=== PATIENT | male | born 1990 | race Caucasian/White ===

== ENCOUNTER 2017-03-08 21:54 | Emergency (ER) | payer BC, OTHER ==
[~2017-03-08] VITALS: Ht 188 cm; Wt 117.9 kg
[2017-03-08 23:29] LABS: BASOPHILS % (AUTO) 0 % (0-10); EOSINOPHILS # (AUTO) 0.2 10^3/uL (0.0-0.3); EOSINOPHILS % (AUTO) 2 % (0-10); LYMPHOCYTES # (AUTO) 2.8 X 10^3 (1.0-4.0); LYMPHOCYTES % (AUTO) 39 % (12-44); MEAN CORPUSCULAR HEMOGLOBIN 28 PG (25-34); MEAN CORPUSCULAR HGB CONC 34 G/DL (32-36); MEAN CORPUSCULAR VOLUME 81 FL (80-99); MEAN PLATELET VOLUME 10.2 FL (7.4-10.4); MONOCYTES # (AUTO) 0.7 X 10^3 (0.0-1.0); MONOCYTES % (AUTO) 10 % (0-12); NEUTROPHILS # (AUTO) 3.6 X 10^3 (1.8-7.8); NEUTROPHILS % (AUTO) 49 % (42-75); PLATELET COUNT 229 10^3/uL (130-400); RED BLOOD COUNT 5.51 10^6/uL (4.35-5.85); RED CELL DISTRIBUTION WIDTH 12.2 % (10.0-14.5); WHITE BLOOD COUNT 7.2 10^3/uL (4.3-11.0)
[2017-03-08 23:31] LABS: BILIRUBIN,URINE NEGATIVE (NEGATIVE); KETONES,URINE NEGATIVE (NEGATIVE); LEUKOCYTE ESTERASE ,URINE NEGATIVE (NEGATIVE); NITRITE,URINE NEGATIVE (NEGATIVE); PH,URINE 7 (5-9); PROTEIN,URINE NEGATIVE (NEGATIVE); UROBILINOGEN,URINE NORMAL (NORMAL)
[2017-03-08 23:39] LABS: SQUAMOUS EPITHELIAL CELL,UR RARE /HPF
[2017-03-08 23:45] LABS: ALANINE AMINOTRANSFERASE 32 U/L (0-55); ALBUMIN 4.4 GM/DL (3.2-4.5); AMYLASE 51 U/L (25-125); ANION GAP 12 MMOL/L (5-14); ASPARTATE AMINO TRANSFERASE 23 U/L (5-34); BILIRUBIN,TOTAL 0.6 MG/DL (0.1-1.0); BLOOD UREA NITROGEN 12 MG/DL (7-18); BUN/CREATININE RATIO 13 (0-20); CALCIUM 9.7 MG/DL (8.5-10.1); CARBON DIOXIDE 24 MMOL/L (21-32); CHLORIDE 107 MMOL/L (98-107); CREATININE SERUM 0.95 MG/DL (0.60-1.30); GFR ESTIMATED > 60; GLUCOSE 93 MG/DL (70-105); HEMOLYSIS 39 (-100-29); ICTERUS 0.5 (-100-1.9); LIPASE 21 U/L (8-78); LIPEMIA 12 (-100-49); POTASSIUM 4.2 MMOL/L (3.6-5.0); SODIUM 143 MMOL/L (135-145); TOTAL PROTEIN 7.5 GM/DL (6.4-8.2)
[2017-03-09] MEDS ORDERED: IOHEXOL 350 MG/ML 100 ML (OMNIPAQUE 350) VIAL IV ONE
[2017-03-09] MEDS ORDERED: NS 100 ML (IVPB) BAG IV ONE
[2017-03-09] MEDS ORDERED: LACT1CAP8 PO (01:21)
[2017-03-09] MEDS ORDERED: METR500T PO (01:21)
[2017-03-09] MEDS ORDERED: ONDA4TAB8 PO (01:21)
[2017-03-09] MEDS ORDERED: HYOS0.1283 SL (01:21)
[2017-03-09] MEDS ORDERED: CIPR-225 PO (01:21)
--- NOTE | 2017-03-09 01:21 | ED GI ---
General Chief Complaint: Abdominal/GI Problems Stated Complaint: STOMACH PAIN Nursing Triage Note: PT STATES HE HAS HAD DIARRHEA SINCE WEDNESDAY AND HAS BEEN HAVING WORSENING RLQ ABD PAIN, STATES IT IS A CONSTANT DULL PAIN BUT IS INTERMITTENTLY SEVERE. ALSO STATES INTERMITTENT NAUSEA, DENIES VOMITING. WAS SEEN A CHC TODAY AND TOOK 3 OTC SUPPOSITORIES AT HOME. Sepsis Screen: No Definite Risk Allergies and Home Medications Allergies Coded Allergies: No Known Drug Allergies (Unverified , 03/08/17) Past Ynhlwce-Muyrtn-Vsjvzx Hx Patient Social History Alcohol Use: Occasionally Uses Recreational Drug Use: No Smoking Status: Never a Smoker Recent Foreign Travel: No Contact w/Someone Who Travel: No Recent Infectious Disease Expo: No Recent Hopitalizations: No Seasonal Allergies Seasonal Allergies: No Physical Exam Vital Signs VS - Last 72 Hours, by Label 03/08/17 23:15 Temp 97.5 Pulse 77 Resp 15 B/P (MAP) 138/88 Capillary Refill : Less Than 3 Seconds Progress/Results/Core Measures Results/Orders Lab Results Laboratory Tests Test 03/08/17 23:18 03/08/17 23:22 Range/Units White Blood Count 7.2 4.3-11.0 10^3/uL Red Blood Count 5.51 4.35-5.85 10^6/uL Hemoglobin 15.2 13.3-17.7 G/DL Hematocrit 45 40-54 % Mean Corpuscular Volume 81 80-99 FL Mean Corpuscular Hemoglobin 28 25-34 PG Mean Corpuscular Hemoglobin Concent 34 32-36 G/DL Red Cell Distribution Width 12.2 10.0-14.5 % Platelet Count 229 130-400 10^3/uL Mean Platelet Volume 10.2 7.4-10.4 FL Neutrophils (%) (Auto) 49 42-75 % Lymphocytes (%) (Auto) 39 12-44 % Monocytes (%) (Auto) 10 0-12 % Eosinophils (%) (Auto) 2 0-10 % Basophils (%) (Auto) 0 0-10 % Neutrophils # (Auto) 3.6 1.8-7.8 X 10^3 Lymphocytes # (Auto) 2.8 1.0-4.0 X 10^3 Monocytes # (Auto) 0.7 0.0-1.0 X 10^3 Eosinophils # (Auto) 0.2 0.0-0.3 10^3/uL Basophils # (Auto) 0.0 0.0-0.1 10^3/uL Sodium Level 143 135-145 MMOL/L Potassium Level 4.2 3.6-5.0 MMOL/L Chloride Level 107 98-107 MMOL/L Carbon Dioxide Level 24 21-32 MMOL/L Anion Gap 12 5-14 MMOL/L Blood Urea Nitrogen 12 7-18 MG/DL Creatinine 0.95 0.60-1.30 MG/DL Estimat Glomerular Filtration Rate > 60 BUN/Creatinine Ratio 13 0-20 Glucose Level 93 70-105 MG/DL Calcium Level 9.7 8.5-10.1 MG/DL Total Bilirubin 0.6 0.1-1.0 MG/DL Aspartate Amino Transf (AST/SGOT) 23 5-34 U/L Alanine Aminotransferase (ALT/SGPT) 32 0-55 U/L Alkaline Phosphatase 80 40-136 U/L Total Protein 7.5 6.4-8.2 GM/DL Albumin 4.4 3.2-4.5 GM/DL Amylase Level 51 25-125 U/L Lipase 21 8-78 U/L Urine Color YELLOW Urine Clarity CLEAR Urine pH 7 5-9 Urine Specific [place] 1.015 L 1.016-1.022 Urine Protein NEGATIVE NEGATIVE Urine Glucose (UA) NEGATIVE NEGATIVE Urine Ketones NEGATIVE NEGATIVE Urine Nitrite NEGATIVE NEGATIVE Urine Bilirubin NEGATIVE NEGATIVE Urine Urobilinogen NORMAL NORMAL MG/DL Urine Leukocyte Esterase NEGATIVE NEGATIVE Urine RBC (Auto) 1+ H NEGATIVE Urine RBC NONE /HPF Urine WBC NONE /HPF Urine Squamous Epithelial Cells RARE /HPF Urine Crystals NONE /LPF Urine Bacteria NEGATIVE /HPF Urine Casts NONE /LPF Urine Mucus NEGATIVE /LPF Urine Culture Indicated NO My Orders Orders - NORA RODRIGUEZ DO Saline Lock/Iv-Start (03/08/17 23:21) Ct Abdomen/Pelvis W (03/08/17 23:21) Amylase (03/08/17 23:21) Cbc With Automated Diff (03/08/17 23:21) Comprehensive Metabolic Panel (03/08/17 23:21) Lipase (03/08/17 23:21) Ua Culture If Indicated (03/08/17 23:21) Iohexol Injection (Omnipaque 350 Mg/Ml 1 (03/09/17 00:00) Ns (Ivpb) (Sodium Chloride 0.9% Ivpb Bag (03/09/17 00:00) Acute Abd Series (03/09/17 00:10) Medications Given in ED Current Medications Medications Dose Ordered Sig/Jian Route Start Time Stop Time Status Last Admin Dose Admin Iohexol 100 ml ONCE ONCE IV 03/09/17 00:00 03/09/17 00:01 UNV 03/09/17 00:04 100 ML Sodium Chloride 80 ml ONCE ONCE IV 03/09/17 00:00 03/09/17 00:01 UNV 03/09/17 00:04 80 ML Vital Signs/I&O Vital Sign - Last 12Hours 03/08/17 23:15 Temp 97.5 Pulse 77 Resp 15 B/P (MAP) 138/88 Blood Pressure Mean: 105 Departure Impression Impression: Primary Impression: Colitis Disposition: HOME, SELF-CARE Condition: Stable Departure-Patient Inst. Referrals: [facility] (PCP/Family) Primary Care Physician Patient Instructions: Microscopic Colitis Add. Discharge Instructions: CLEAR LIQUIDS--WATER, BROTH, JELLO, GATORADE NO FOOD UNTIL YOU ARE RECHECKED AND CLEARED BY YOUR DR FOLLOW UP WITH [facility] IN 2-3 DAYS FOR FURTHER CARE All discharge instructions reviewed with patient and/or family. Voiced understanding. Scripts Hyoscyamine Sulfate (Levsin-Sl) 0.125 Mg Tab.subl 1-2 TAB SL Q4H for Abdominal Pain, #10 TAB Prov: NORA RODRIGUEZ DO 03/09/17 Ondansetron (Zofran Odt) 4 Mg Tab.rapdis 4 MG PO Q4H for Nausea/Vomiting, #10 TAB Prov: NORA RODRIGUEZ DO 03/09/17 Lactobacillus Acidophilus (Acidophilus) 1 Each Capsule 2 EACH PO QID, #80 CAP Prov: NORA RODRIGUEZ DO 03/09/17 Metronidazole (Flagyl) 500 Mg Tablet 500 MG PO QID for FOR INFECTION, #40 TAB Prov: NORA RODRIGUEZ DO 03/09/17 Ciprofloxacin HCl (Cipro) 500 Mg Tablet 500 MG PO BID, #20 TAB Prov: NORA RODRIGUEZ DO 03/09/17 Work/School Note: Work Release Form Date Seen in the Emergency Department: Mar 09, 2017 Restrictions: Need Release from Doctor NORA RODRIGUEZ DO Mar 09, 2017 01:21
[2017-03-09] MEDS ORDERED: RX-ONDANSETRON 4 MG ODT (ZOFRAN) PPK #4 PO STA (01:28)
[2017-03-09] MEDS ORDERED: RX-HYOSCYAMINE 0.125 MG SL (LEVSIN) PPK#6 SL STA (01:28)
[2017-03-09] MEDS ORDERED: LEVOFLOXACIN 500 MG TAB (LEVAQUIN) PO ONE (01:30)
[2017-03-09] MEDS ORDERED: metroNIDAZOLE 500 MG (FLAGYL) TAB PO ONE (01:30)
[2017-03-09 01:35] VITALS: BP 138/88
--- NOTE | 2017-03-09 06:45 | Diagnostic Imaging Report ---
PROCEDURE: CT abdomen and pelvis with contrast. TECHNIQUE: Multiple contiguous axial images were obtained through the abdomen and pelvis after administration of intravenous contrast. INDICATION: Pain. No priors. There is a segmental diffuse thickening of the colon involving the cecum and descending colon through the hepatic flexure and into the proximal transverse segment. There is associated mild pericolonic edema and some adjacent presumed reactive adenopathy. Pericolonic nodes in the right lower quadrant mesentery measured maximal short axis 11 mm. No pneumatosis or free air. No evidence for viscus perforation. There were no findings of appendicitis. There is no diverticuli. There is a small volume nonloculated dependent pelvic free fluid. No loculated collection or abscess. The liver, gallbladder, spleen, adrenals and pancreas unremarkable. The unobstructed kidneys were normal. Aortoiliac and mesenteric vascular structures patent and nonaneurysmal. Prostate, seminal vesicles and urinary bladder appeared unremarkable. The osseous structures were nonacute. IMPRESSION: Nonspecific right-sided colitis with reactive mild regional adenopathy. Small volume free fluid but no abscess, obstruction or perforation. These changes may reflect inflammatory or infectious colitis. Urinary tracts and remaining structures unremarkable. Negative appendix. I agree with preliminary. Dictated by: Dictated on workstation # [id number]
--- NOTE | 2017-03-09 07:11 | Diagnostic Imaging Report ---
INDICATION: Diarrhea, pain in the right lower quadrant. FINDINGS: The lungs are clear. The heart and vessels are normal. There is no effusion or pneumothorax. The bowel gas pattern normal. No air-fluid levels, free gas or pneumatosis. IMPRESSION: Unremarkable acute abdominal series. Dictated by: Dictated on workstation # [id number]
--- OUTSIDE RECORDS SUMMARY | 2017-03-11 13:49 | XMS REPORT ---
Author ERENDIRA Griffith Organization [employer] Address Unknown Phone Unavailable Care Team Providers Care Projector Booth Operator Name Role Phone ERENDIRA BYERS CP Unavailable Allergies, Adverse Reactions, Alerts Substance Reaction Event Type N.K.D.A. Info Not Available Non Drug Allergy Problems Problem Type Condition Code Onset Dates Condition Status Assessment Sciatica of left side M54.32 Active Problem Intestinal infection due to other organism, NEC 008.8 Active Medications Medication Code System Code Instructions Start Date End Date Status Dosage Cyclobenzaprine HCl [facility] [address]-94 10 mg Orally Three times a day prn pain in buttock March 12, 2016 1 tablet Procedures Procedure Coding System Code Date KENALOG 40 MG/ML (PER 10 MG) CPT-4 J3301 March 31, 2016 THER/PROPH/DIAG INJ, SC/IM CPT-4 99889 March 31, 2016 Office Visit, Est Pt., Level 3 CPT-4 91218 March 31, 2016 Vital Signs Date/Time: March 31, 2016 Cardiac Monitoring Heart Rate 90 bpm Weight 260.0 lbs Height 74 in Blood Pressure Diastolic 72 mmHg Blood Pressure Systolic 120 mmHg Results No Known Results Summary Purpose [employer] Submission
--- OUTSIDE RECORDS SUMMARY | 2017-03-11 13:49 | XMS REPORT | Continuity of Care Document ---
Author Author [facility] Organization [facility] Address Unknown Phone Unavailable Allergies Active Description Code Type Severity Reaction Onset Reported/Identified Relationship to Patient Clinical Status Yes No Known Drug Allergies [id number] Drug Allergy Unknown N/ A 03/08/2017 Medications Problems Date Dx Coded Attending Type Code Diagnosis Diagnosed By 10/25/2013 CEDRICK NELSON APRN 008.8 GASTROENTERITIS, VIRAL 10/25/2013 SANDRA COOL DO 008.8 GASTROENTERITIS, VIRAL Procedures Results Test Result Range Complete blood count (CBC) with automated white blood cell (WBC) differential - 03/08/17 23:18 Blood leukocytes automated count (number/volume) 7.2 10*3/ uL 4.3-11.0 Blood erythrocytes automated count (number/volume) 5.51 10*6 /uL 4.35-5.85 Venous blood hemoglobin measurement (mass/volume) 15.2 g/dL 13.3-17.7 Blood hematocrit (volume fraction) 45 % 40-54 Automated erythrocyte mean corpuscular volume 81 [foz_us] 80-99 Automated erythrocyte mean corpuscular hemoglobin (mass per erythrocyte) 28 pg 25-34 Automated erythrocyte mean corpuscular hemoglobin concentration measurement ( mass/volume) 34 g/dL 32-36 Automated erythrocyte distribution width ratio 12.2 % 10.0-14.5 Automated blood platelet count (count/volume) 229 10*3/uL 130-400 Automated blood platelet mean volume measurement 10.2 [foz_ us] 7.4-10.4 Automated blood neutrophils/100 leukocytes 49 % 42-75 Automated blood lymphocytes/100 leukocytes 39 % 12-44 Blood monocytes/100 leukocytes 10 % 0-12 Automated blood eosinophils/100 leukocytes 2 % 0-10 Automated blood basophils/100 leukocytes 0 % 0-10 Blood neutrophils automated count (number/volume) 3.6 10*3 1.8-7.8 Blood lymphocytes automated count (number/volume) 2.8 10*3 1.0-4.0 Blood monocytes automated count (number/volume) 0.7 10*3 0.0-1.0 Automated eosinophil count 0.2 10*3/uL 0.0-0.3 Automated blood basophil count (count/volume) 0.0 10*3/uL 0.0-0.1 Comprehensive metabolic panel - 03/08/17 23:18 Serum or plasma sodium measurement (moles/volume) 143 mmol/ L 135-145 Serum or plasma potassium measurement (moles/volume) 4.2 mmol/L 3.6-5.0 Serum or plasma chloride measurement (moles/volume) 107 mmol /L 98-107 Carbon dioxide 24 mmol/L 21-32 Serum or plasma anion gap determination (moles/volume) 12 mmol/L 5-14 Serum or plasma urea nitrogen measurement (mass/volume) 12 mg/dL 7-18 Serum or plasma creatinine measurement (mass/volume) 0.95 mg /dL 0.60-1.30 Serum or plasma urea nitrogen/creatinine mass ratio 13 0-20 Serum or plasma creatinine measurement with calculation of estimated glomerular filtration rate > NRG Serum or plasma glucose measurement (mass/volume) 93 mg/dL 70-105 Serum or plasma calcium measurement (mass/volume) 9.7 mg/dL 8.5-10.1 Serum or plasma total bilirubin measurement (mass/volume) 0.6 mg/dL 0.1-1.0 Serum or plasma alkaline phosphatase measurement (enzymatic activity/volume) 80 U/L 40-136 Serum or plasma aspartate aminotransferase measurement (enzymatic activity/ volume) 23 U/L 5-34 Serum or plasma alanine aminotransferase measurement (enzymatic activity/volume ) 32 U/L 0-55 Serum or plasma protein measurement (mass/volume) 7.5 g/dL 6.4-8.2 Serum or plasma albumin measurement (mass/volume) 4.4 g/dL 3.2-4.5 Serum or plasma amylase measurement (enzymatic activity/volume) - 03/08/17 23: 18 Serum or plasma amylase measurement (enzymatic activity/volume) 51 U/L 25-125 Lipase - 03/08/17 23:18 Lipase 21 U/L 8-78 Complete urinalysis with reflex to culture - 03/08/17 23:22 Urine color determination YELLOW NRG Urine clarity determination CLEAR NRG Urine pH measurement by test strip 7 5- 9 Specific gravity of urine by test strip 1.015 1.016-1.022 Urine protein assay by test strip, semi-quantitative NEGATIVE NEGATIVE Urine glucose detection by automated test strip NEGATIVE NEGATIVE Erythrocytes detection in urine sediment by light microscopy 1+ NEGATIVE Urine ketones detection by automated test strip NEGATIVE NEGATIVE Urine nitrite detection by test strip NEGATIVE NEGATIVE Urine total bilirubin detection by test strip NEGATIVE NEGATIVE Urine urobilinogen measurement by automated test strip (mass/volume) NORMAL NORMAL Urine leukocyte esterase detection by dipstick NEGATIVE NEGATIVE Automated urine sediment erythrocyte count by microscopy (number/high power field) NONE NRG Automated urine sediment leukocyte count by microscopy (number/high power field ) NONE NRG Bacteria detection in urine sediment by light microscopy NEGATIVE NRG Squamous epithelial cells detection in urine sediment by light microscopy RARE NRG Crystals detection in urine sediment by light microscopy NONE NRG Casts detection in urine sediment by light microscopy NONE NRG Mucus detection in urine sediment by light microscopy NEGATIVE NRG Complete urinalysis with reflex to culture NO NRG Encounters ACCT No. Visit Date/Time Discharge Status Pt. Type Provider Facility Loc./Unit Complaint [id number] 03/08/2017 21:56:00 2016 01:39:00 DIS Emergency NORA RODRIGUEZ DO [facility] ER STOMACH PAIN [id number] 04/22/2013 14:05:00 2012 23:59:59 CLS Outpatient
--- OUTSIDE RECORDS SUMMARY | 2017-03-11 13:49 | XMS REPORT ---
Author CEDRICK Hendrickson [facility] [employer] Address Unknown Phone Unavailable Care Team Providers Care Block Trimmer Name Role Phone CEDRICK NELSON CP Unavailable Allergies, Adverse Reactions, Alerts Substance Reaction Event Type N.K.D.A. 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 Assessment Migraine G43.909 Active Problem Intestinal infection due to other organism, NEC 008.8 Active Medications Medication Code System Code Instructions Start Date End Date Status Dosage Fioricet [facility] [address]-85 50-300-40 MG Orally every 4 hrs January 16, 2016 1 capsule as needed Procedures Procedure Coding System Code Date ASSAY THYROID STIM HORMONE CPT-4 29881 January 16, 2016 COMPLETE CBC W/AUTO DIFF WBC CPT-4 72961 January 16, 2016 Office Visit, Est Pt., Level 3 CPT-4 77822 January 16, 2016 VENIPUNCT, ROUTINE* CPT-4 33773 January 16, 2016 COMPREHEN METABOLIC PANEL CPT-4 74768 January 16, 2016 Vital Signs Date/Time: January 16, 2016 Temperature 98.4 F Weight 256.7 lbs Height 74 in BMI 32.95 Index Blood Pressure Diastolic 82 mmHg Blood Pressure Systolic 130 mmHg Cardiac Monitoring Heart Rate 80 bpm Results Name Result Date Reference Range Unit Abnormality Flag ROUTINE VENIPUNCTURE TSH ----TSH 1.320 [id number] 0.450-4.500 uIU/mL CBC ----MCHC 35.1 [id number] 31.5-35.7 g/dL ----MCH 28.4 [id number] 26.6-33.0 pg ----Platelets 263 [id number] 150-379 x10E3/uL ----RDW 12.9 [id number] 12.3-15.4 % ----Immature Granulocytes 0 78528768 % ----Immature Grans (Abs) 0.0 [id number] 0.0-0.1 x10E3/uL ----Lymphs 39 15705217 % ----Monocytes 6 15652152 % ----Neutrophils 53 60493018 % ----Neutrophils (Absolute) 4.0 00240007 1.4-7.0 x10E3/uL ----Hematocrit 42.7 53135293 37.5-51.0 % ----Lymphs (Absolute) 2.9 66236990 0.7-3.1 x10E3/uL ----MCV 81 89706838 79-97 fL ----RBC 5.29 72217291 4.14-5.80 x10E6/uL ----Eos 1 38102557 % ----Basos 1 75551422 % ----Hemoglobin 15.0 20160116 12.6-17.7 g/dL ----Baso (Absolute) 0.0 33747005 0.0-0.2 x10E3/uL ----WBC 7.4 05235876 3.4-10.8 x10E3/uL ----Monocytes(Absolute) 0.5 82734036 0.1-0.9 x10E3/uL ----Eos (Absolute) 0.1 [id number] 0.0-0.4 x10E3/uL Summary Purpose [employer]ClinicalWorks Submission
== END 2017-03-09 01:39 | disposition home or self-care (01) ==
LOC: EDUNIT# 21:54 → ER 21:56
DX: K52.9 Noninfective gastroenteritis and colitis, unspecified (principal)
CPT/HCPCS: 36415; 74022; 74177; 80053; 81000; 82150; 83690; 85025